=== PATIENT | male | born 1975 | race Caucasian/White ===

== ENCOUNTER 2020-08-17 20:00 | Observation (INO) ==
[2020-08-17 20:49] LABS: Basophils # (auto) 0.04 K/uL (0-0.2); Basophils % (auto) 0.5 %; Eosinophils # (auto) 0.58 K/uL (0-0.5); Eosinophils % (auto) 7.5 %; Hematocrit (blood only) 40.8 % (42-52); Hemoglobin 14.5 g/dL (14.0-18.0); Immature Granulocytes # (auto) 0.02 K/uL (0.00-0.02); Immature Granulocytes % (auto) 0.3 %; Lymphocytes % (auto) 36.2 %; Mean Corpuscular Hemoglobin 31.8 pg (25-34); Mean Corpuscular Hgb Conc 35.5 g/dL (32-36); Mean Corpuscular Volume 89.5 fL (80-100); Monocytes # (auto) 0.76 K/uL (0.11-0.59); Monocytes % (auto) 9.8 %; Neutrophils # (auto) 3.53 K/uL (1.4-6.5); Neutrophils % (auto) 45.7 %; Platelet Count 221 K/uL (130-400); RDW Coefficient of Variation 11.7 % (11.5-14.5); RDW Standard Deviation 38.2 fL (36.4-46.3); Red Blood Count 4.56 M/uL (4.7-6.1); White Blood Count 7.73 K/uL (4.8-10.8)
[2020-08-17 20:55] LABS: Alanine Aminotransferase 37 U/L (12-78); Albumin Level 3.8 gm/dl (3.4-5.0); Aspartate Aminotransferase 26 U/L (15-37); BUN Creatinine Ratio 18.3 (10-20); Blood Urea Nitrogen 17 mg/dl (7-18); Carbon Dioxide 27 mmol/L (21-32); Chloride 106 mmol/L (98-107); Creatinine Clr Calc Pharmacy 136.8 ml/min; Est GFR (African American) 111.5; Est GFR (Non-African American) 96.2; Glucose 122 mg/dl (70-99); Lipase 362 U/L (73-393); Potassium 3.8 mmol/L (3.5-5.1); Sodium 142 mmol/L (136-145)
[2020-08-17 20:59] LABS: Partial Thromboplastin Ratio 0.9; Partial Thromboplastin Time 24.2 Seconds (21.0-31.0); Prothrombin Time 10.4 Seconds (9.0-12.0)
[2020-08-17 21:00] LABS: Alkaline Phosphatase 65 U/L (45-117); Bilirubin,Total 0.6 mg/dl (0.2-1); Globulin 3.7 gm/dl (2.5-4.0); Total Protein 7.5 gm/dl (6.4-8.2); Troponin I < 0.015 ng/ml (0-0.045)
[2020-08-18] MEDS ORDERED: NITROGLYCERIN SL 0.4 MG/TAB TAB SL PRN (00:05)
[2020-08-18] MEDS ORDERED: ONDANSETRON INJ 2 MG/ML 2 ML VIAL IV PRN (00:05)
[2020-08-18] MEDS ORDERED: ACETAMINOPHEN 325 MG TAB PO PRN (00:05)
[2020-08-18] MEDS ORDERED: GLUCAGON FOR INJ 1 MG VIAL SQ PRN (00:15)
[2020-08-18] MEDS ORDERED: GLUCOSE 10 TABS/TUBE PO PRN (00:15)
[2020-08-18] MEDS ORDERED: CARBOHYDRATES FOR HYPOGLYCEMIA PO PRN (00:15)
[2020-08-18] MEDS ORDERED: DEXTROSE 50% 50 ML SYRINGE IV PRN (00:15)
[2020-08-18] MEDS ORDERED: GLUCOSE 40% GEL 15 GM TUBE PO PRN (00:15)
--- NOTE | 2020-08-18 01:32 | Emergency Department Note ---
History of Present Illness General Chief Complaint: Chest Pain Stated Complaint: CHEST PAIN,LEFT ARM PAIN Time Seen by Provider: 08/17/20 20:45 History of Present Illness Provider Complaint: chest pain Onset (ago): week(s) Onset (Weeks): 1 Duration: intermittent Pain Location: substernal Pain Radiation: LUE Severity: moderate Maximum Pain Intensity: 7 Current Pain Intensity: 0 Quality: + tightness, + aching and + sharp Relieved By: + nothing Exacerbated By: + nothing Associated symptoms: no dyspnea, no fever and no cough 45-year-old male presents emergency department from for chest pain. Patient reports he has been having intermittent chest pain for the last week. He reports the pain is stabbing. He states the pain at maximum is 7 out of 10. He states it radiated down his left arm. Patient reports no pain currently. He also reports feeling increasingly fatigued. Patient also reports a headache. Headache is diffuse. No recent trauma. No fever. No cough. No hemoptysis. No recent travel. No exogenous hormone usage. No exposure rhinoscope 19+ or person of interest. Patient reports no loss of taste or smell. Patient does state he is an alcoholic and he has not had anything to drink in the last 3 weeks as he is trying to quit drinking. Patient states he quit "cold turkey". 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 Home Medications Home Medications Medication Instructions Recorded Confirmed Type aspirin 81 mg PO QAM 10/24/19 08/17/20 History lisinopril 20 mg PO QAM 10/24/19 08/17/20 History metformin 500 mg PO QAM 10/24/19 08/17/20 History multivitamin 1 tab PO QAM 10/24/19 08/17/20 History apple cider vinegar 600 mg PO QAM 08/17/20 08/17/20 History famotidine 20 mg PO QAM 08/17/20 08/17/20 History Allergies Allergy/AdvReac Type Severity Reaction Status Date / Time No Known Allergies Allergy Verified 08/17/20 21:59 Past Med/Surg History Medical History (Updated 08/18/20 @ 01:32 by Montrell Lopez) Diabetes mellitus type 2, noninsulin dependent HTN (hypertension) Surgical History (Updated 08/18/20 @ 01:27 by Montrell Lopez) No pertinent past surgical history Family History (Updated 08/18/20 @ 01:27 by Montrell Lopez) Mother Heart disease Social History (Updated 10/24/19 @ 15:08 by Damaris Olivas) Smoking Status: Never smoker Tobacco Type: Smokeless Tobacco (Dip or Chew) Hx Alcohol Use: No Hx Substance Use: No Preferred Language: Chilean Communication Ability: Effective Flat Drier Required: No Beliefs That Will Affect Care: None Current Living Situation: Spouse Feels Safe at Home: Yes Safety Concerns: Feels Safe At This Time Review of Systems A total of 10 systems reviewed and were otherwise negative Physical Exam Vital Signs Vital Signs - 24 hr 08/17/20 20:04 08/17/20 22:00 08/17/20 22:30 Temperature 36.5 C Temperature Source Oral Pulse Rate 68 57 L 57 L Pulse Rate from SpO2 Sensor 58 L 56 L Respiratory Rate 18 14 17 Respiratory Effort / Characteristics Non-Labored Spontaneous Respiratory Depth Normal Blood Pressure 186/87 H 144/83 H 147/78 H Blood Pressure Mean 120 108 90 Blood Pressure Position Sitting Pulse Oximetry 97 99 97 Oxygen Delivery Method Room Air Sepsis Recent Fever Within 48 Hours No Sepsis New/Unexplained Change in Mental Status N/A Sepsis Action Taken by Nursing No Action Required Physical Exam GENERAL: He is oriented to person, place, and time. He appears well-developed and well-nourished. He does not appear distressed. HENT: Exam performed. - Head: Normocephalic and atraumatic. - Right Ear: External ear normal. No mastoid tenderness. - Left Ear: External ear normal. No mastoid tenderness. - Mouth/Throat: The oropharynx is clear and moist. No trismus in the jaw. No dental abscesses or uvula swelling. No oropharyngeal exudate or tonsillar abscesses. EYES: Conjunctivae and EOM are normal. Pupils are equal, round, and reactive to light. Right eye exhibits no discharge. Left eye exhibits no discharge. No scleral icterus. NECK: Normal range of motion. Neck supple. No JVD present. No spinous process tenderness present. No carotid bruit present. No rigidity. No tracheal deviation and normal range of motion present. No Brudzinski's sign and no Kernig's sign noted. CV: Normal rate, regular rhythm, normal heart sounds and intact distal pulses. There is no peripheral edema. Palpable radial pulses bue. PULM/CHEST: Effort normal and breath sounds normal. No respiratory distress. No stridor. He has no wheezes. He has no rales. - Chest Wall: He exhibits no tenderness. ABD: The abdomen is soft. Bowel sounds are normal. He has no distension. No mass is present. There is no tenderness. There is no rebound, no guarding, no Chun's sign and no tenderness at McBurney's point. Rovsig negative. MUSC/SKEL: Normal range of motion. There is no peripheral edema, tenderness or deformity. LYMPH: No cervical adenopathy. NEURO: He is alert and oriented to person, place, and time. He has normal strength. No cranial nerve deficit or sensory deficit. Coordination and gait normal. GCS eye subscore is 4. GCS verbal subscore is 5. GCS motor subscore is 6. Cerebellar tests wnl. SKIN: Skin is warm and dry. He is not diaphoretic. PSYCH: He has a normal mood and affect. Behavior is normal. Judgment and thought content normal. Course Course 2044: The patient was evaluated in room C12. A complete history and physical exam was performed. Patient was seen during time of extreme acuity and volume in the emergency department during the COVID-19 pandemic. Nursing protocols were placed for the patient and labs were drawn prior to me seeing him. Cardiac monitoring: An order was placed for continuous cardiac monitoring. The monitor shows a rate of 60 with sinus rhythm 2212: Vital signs stable. Physical exam within normal limits. Patient currently reports no chest pain or difficulty breathing. Labs and imaging within normal limits. Patient has a moderate to high heart score. Patient will be admitted for chest pain rule out ACS. [facility] hospitalist Dr. Oglesby notified. Medical Decision Making Laboratory Data Result diagrams: 08/17/20 20:15 08/17/20 20:15 Labs: Lab Results 08/17/20 08/17/20 08/17/20 Range/Units 20:15 20:15 20:15 WBC 7.73 (4.8-10.8) K/uL RBC 4.56 L (4.7-6.1) M/uL Hgb 14.5 (14.0-18.0) g/dL Hct 40.8 L (42-52) % MCV 89.5 (80-100) fL MCH 31.8 (25-34) pg MCHC 35.5 (32-36) g/dL RDW Std Deviation 38.2 (36.4-46.3) fL RDW Coeff of Miguel 11.7 (11.5-14.5) % Plt Count 221 (130-400) K/uL MPV 9.0 (7.4-10.4) fL Immature Gran % (Auto) 0.3 % Neut % (Auto) 45.7 % Lymph % (Auto) 36.2 % [place] % (Auto) 9.8 % Eos % (Auto) 7.5 % Baso % (Auto) 0.5 % Neut # (Auto) 3.53 (1.4-6.5) K/uL Lymph # (Auto) 2.80 (1.2-3.4) K/uL [place] # (Auto) 0.76 H (0.11-0.59) K/uL Eos # (Auto) 0.58 H (0-0.5) K/uL Baso # (Auto) 0.04 (0-0.2) K/uL Immature Gran # (Auto) 0.02 (0.00-0.02) K/uL PT 10.4 (9.0-12.0) Seconds INR 1.0 (0.9-1.1) APTT 24.2 (21.0-31.0) Seconds PTT Ratio 0.9 Sodium 142 (136-145) mmol/L Potassium 3.8 (3.5-5.1) mmol/L Chloride 106 (98-107) mmol/L Carbon Dioxide 27 (21-32) mmol/L Anion Gap 9.0 (3-11) BUN 17 (7-18) mg/dl Creatinine 0.94 (0.6-1.4) mg/dl Est Cr Clr Drug Dosing 136.8 ml/min Est GFR ( Amer) 111.5 Est GFR (Non-Af Amer) 96.2 BUN/Creatinine Ratio 18.3 (10-20) Glucose 122 H (70-99) mg/dl Calcium 9.0 (8.5-10.1) mg/dl Total Bilirubin 0.6 (0.2-1) mg/dl AST 26 (15-37) U/L ALT 37 (12-78) U/L Alkaline Phosphatase 65 (45-117) U/L Troponin I < 0.015 (0-0.045) ng/ml Total Protein 7.5 (6.4-8.2) gm/dl Albumin 3.8 (3.4-5.0) gm/dl Globulin 3.7 (2.5-4.0) gm/dl Albumin/Globulin Ratio 1.0 (0.9-2) Lipase 362 (73-393) U/L Imaging Data Chest x-ray: My impression: Chest x-ray negative. Airway clear. No pneumothorax. No consolidation. No cardiomegaly or cephalization.. No free air under the diaphragm. No fractures of the skeletal structures. CT scan - head: Radiologist's impression: PreliminaryFindingsOnly See Final Report For Complete Findings CT HEAD: No ICH, mass effect, or edema. Ethmoid air cell mucosal thickening. No skull fracture. Radiologist: Leisa Mckinley M.D. Study ready at 21:45 and initial results transmitted at 21:49 ECG Data Indication: chest pain Rate (beats per minute): 61 Rhythm: normal sinus Findings: no ST depression and no ST elevation Additional Comments: SC QRS and QTc intervals are within normal limits. MDM Narrative Vital signs stable. Physical exam within normal limits. Patient currently reports no chest pain or difficulty breathing. Labs and imaging within normal limits. Patient has a moderate to high heart score. Patient will be admitted for chest pain rule out ACS. [facility] hospitalist Dr. Oglesby notified. Impression & Plan Chest pain Discharge Plan Visit Data Chief Complaint: Chest Pain Stated Complaint: CHEST PAIN,LEFT ARM PAIN ED Provider: Montrell Lopez Discharge Problem: Chest pain Patient Disposition: Admitted As Inpatient Discharge Instructions Interventions: ED Discharge Assessment Last Done: 08/17/20 23:27 Discharge Problem: Chest pain Qualifiers: Chest pain type: unspecified Qualified Code(s): R07.9 - Chest pain, unspecified
--- NOTE | 2020-08-18 01:39 | History and Physical Report ---
DATE OF ADMISSION: 08/17/2020 CHIEF COMPLAINT: Chest pain. HISTORY OF PRESENT ILLNESS: This is a 45-year-old male with past medical history significant for hypertension, hyperlipidemia, diabetes, chews tobacco, who presents with chest pain. The patient says he is noticing left-sided chest pain since last 1 week, sometimes it is radiating to his left arm and is associated with headaches, a sharp kind of pain 6/10 in severity, mostly kind of nuisance kind of pain. 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 He is very active when he is at work, he does not notice any pain, but when he comes back home he notices the pain at home. It is a constant kind of pain. No shortness of breath, no cough, no dizziness, no nausea, no vomiting. No other complaints. No earache, no runny nose, no sore throat, no difficulty swallowing. No loss of sense of smell or taste. Appetite is okay. No abdominal pain. Normal bowel and bladder movements. No rash, no swelling in the legs. Sleeps okay. Otherwise active. The patient states he used to drink heavy alcohol like he used to drink 8 beers every day and 36 beers on the weekends, but he quit about 3 weeks ago. He did quit before also when he was diagnosed with diabetes and never had any withdrawal symptoms. At this time also, he never had withdrawal symptoms, but he developed this chest pain. He is not sure whether the quitting alcohol is causing the chest pain. Currently resting comfortable and hemodynamically stable. ALLERGIES: No known drug allergies. PAST MEDICAL HISTORY: As mentioned above. PAST SURGICAL HISTORY: Umbilical hernia repair. MEDICATIONS: Apple cider vinegar 600 mg p.o. a.m., aspirin 81 mg p.o. a.m., famotidine 20 mg p.o. a.m., lisinopril 20 mg p.o. a.m., metformin 500 mg p.o. a.m., multivitamin 1 tablet p.o. daily. FAMILY HISTORY: Significant for mother had asthma, father had MS, paternal grandfather had diabetes. SOCIAL HISTORY: . Chews tobacco. Currently no alcohol, no drug use. REVIEW OF SYSTEMS: As per HPI. Rest of review of systems negative. PHYSICAL EXAMINATION: GENERAL: The patient is of moderate build, not in acute distress. VITAL SIGNS: Temperature 36.5, pulse 57, respiratory rate 14, blood pressure 144/83, oxygen 99% on room air. HEENT: Pupils equal, round, reactive to light. NECK: No neck masses seen. CARDIOVASCULAR: S1, S2 heard. Regular rate and rhythm. No murmur, no gallop. RESPIRATORY SYSTEM: Normal AP diameter. No accessory muscle use. No wheezing, no crackles. ABDOMEN: Soft, bowel sounds present, nontender. No distention. CENTRAL NERVOUS SYSTEM: Cranial nerves II-XII grossly intact. Nonfocal. EXTREMITIES: No edema, no erythema. LABORATORY DATA: WBC 7.7, hemoglobin 14.4, hematocrit 40.8, platelets 221. PT 10.4, INR 1, APTT 24.2. Sodium 142, potassium 3.8, chloride 106, bicarbonate 27, BUN 17, creatinine 0.9, serum glucose 122, calcium 9, total bilirubin 0.6, AST 26, ALT 37, alkaline phosphatase 65. Troponin I less than 0.015. Lipase 362. IMAGING DATA: CT of the head, no acute findings seen. Chest x-ray, no acute findings seen. EKG: Normal sinus rhythm at a rate of 61. No acute ST changes seen. No significant change from previous EKG. ASSESSMENT AND PLAN: This is a 45-year-old male who presents with chest pain. 1. Chest pain, rule out acute coronary syndrome. Initial workup is negative. The patient has risk factor of hypertension, age, alcoholism, chews tobacco. The patient had a stress echo on 02/22/2020, which was negative for any inducible ischemia. We will observe in [facility] floor. N.p.o. after midnight. Will follow serial enzymes, echocardiogram. Further recommendation as per cardiology in a.m. Continue his aspirin. 2. Hypertension. Continue his lisinopril. Will monitor the blood pressure 3. Diabetes. Hold his metformin. Placed on insulin sliding scale. Follow hemoglobin A1c level, follow his blood sugars. 4. Chews tobacco. Needs counseling. 5. Alcoholism. Says he used to heavily drink, but quit 3 weeks ago. Continue his multivitamin. 6. Deep venous thrombosis prophylaxis, sequential compression devices. 7. Disposition: Observe in med/tel.Expect to discharge home and follow with his family doctor. Level 1 full code. MTDD
[2020-08-18 05:41] LABS: Basophils # (auto) 0.03 K/uL (0-0.2); Basophils % (auto) 0.4 %; Eosinophils # (auto) 0.68 K/uL (0-0.5); Eosinophils % (auto) 8.7 %; Hematocrit (blood only) 40.2 % (42-52); Hemoglobin 13.8 g/dL (14.0-18.0); Immature Granulocytes # (auto) 0.01 K/uL (0.00-0.02); Immature Granulocytes % (auto) 0.1 %; Lymphocytes # (auto) 2.46 K/uL (1.2-3.4); Lymphocytes % (auto) 31.5 %; Mean Corpuscular Hemoglobin 30.5 pg (25-34); Mean Corpuscular Hgb Conc 34.3 g/dL (32-36); Mean Corpuscular Volume 88.9 fL (80-100); Monocytes # (auto) 0.91 K/uL (0.11-0.59); Monocytes % (auto) 11.6 %; Neutrophils # (auto) 3.73 K/uL (1.4-6.5); Neutrophils % (auto) 47.7 %; Platelet Count 178 K/uL (130-400); RDW Coefficient of Variation 11.7 % (11.5-14.5); RDW Standard Deviation 37.7 fL (36.4-46.3); Red Blood Count 4.52 M/uL (4.7-6.1); White Blood Count 7.82 K/uL (4.8-10.8)
[2020-08-18 06:19] LABS: BUN Creatinine Ratio 17.4 (10-20); Blood Urea Nitrogen 16 mg/dl (7-18); Calcium 8.8 mg/dl (8.5-10.1); Carbon Dioxide 27 mmol/L (21-32); Chloride 108 mmol/L (98-107); Creatinine Clr Calc Pharmacy 142.6 ml/min; Est GFR (African American) 117.5; Est GFR (Non-African American) 101.4; Glucose 110 mg/dl (70-99); Magnesium 2.1 mg/dl (1.8-2.4); Potassium 4.1 mmol/L (3.5-5.1); Sodium 141 mmol/L (136-145)
[2020-08-18 06:24] LABS: Estimated Average Glucose 114 mg/dl; Hemoglobin A1C 5.6 % (4.5-5.6)
[2020-08-18 06:25] LABS: Chol HDL Ratio 5; Cholesterol 175 mg/dl (0-200); HDL Cholesterol 33 mg/dl; LDL Cholesterol Calculated 107 mg/dl; Triglycerides 175 mg/dl (0-150); Troponin I < 0.015 ng/ml (0-0.045); VLDL Cholesterol 35 mg/dl
--- NOTE | 2020-08-18 06:52 | XRay Report ---
XR chest 1V portable CLINICAL HISTORY: Atypical chest pain COMPARISON STUDY: 10/24/2019 FINDINGS: The heart is upper limits of normal in size. There is no failure. There is no focal pulmona ry consolidation. There are no pleural effusions.[ IMPRESSION: No active disease in the chest. ACT 112: Negative or not required by law. Electronically signed by: Kirt Robertson M.D. 08/18/2020 6:50 AM
--- NOTE | 2020-08-18 06:56 | CT Scan Report ---
CT head/brain wo con CLINICAL HISTORY: 45 years-old Male with cameron alcoholism. Acute headache with chest pain TECHNIQUE: Multiple axial CT images of the head were obtained without contrast. A dose lowering tech nique was utilized adhering to the principles of ALARA. CT DOSE: 614.27 mGy.cm COMPARISON: None. FINDINGS: No acute intracranial hemorrhage, midline shift, intracranial mass, hydrocephalus, territorial ischem ia or abnormal extra-axial collection. The calvarium is intact. Mastoid air cells are clear. Moderate mucosal thickening of the ethmoid air cells. Soft tissues and orbits are unremarkable. IMPRESSION: No acute intracranial abnormality. ACT 112: Negative or not required by law. The above report was generated using voice recognition software. It may contain grammatical, syntax o r spelling errors. Electronically signed by: Rajendra Schultz M.D. 08/18/2020 6:54 AM
[2020-08-18] MEDS ORDERED: INSULIN ASPART 100 UNITS/ML 3 ML PEN SC SCH (07:30)
[2020-08-18] MEDS ORDERED: ASPIRIN 81 MG ECTAB PO SCH (09:00)
[2020-08-18] MEDS ORDERED: MULTIVITAMIN TAB PO SCH (09:00)
[2020-08-18] MEDS ORDERED: lisinopriL 20 MG TAB PO SCH (09:00)
[2020-08-18] MEDS ORDERED: FAMOTIDINE 20 MG TAB PO SCH (09:00)
--- NOTE | 2020-08-18 09:27 | Electrocardiogram Report ---
Test Reason : Blood Pressure : / mmHG Vent. Rate : 061 BPM Atrial Rate : 061 BPM P-R Int : 172 ms QRS Dur : 102 ms QT Int : 400 ms P-R-T Axes : 041 051 051 degrees QTc Int : 402 ms Normal sinus rhythm Normal ECG When compared with ECG of 24-OCT-2019 14:53, No significant change was found Confirmed by Gigi Mckay ([id number]) on 08/18/2020 9:27:28 AM Referred By: REFERRED SELF Confirmed By:Gigi Mckay
--- NOTE | 2020-08-18 09:38 | Electrocardiogram Report ---
Test Reason : Blood Pressure : / mmHG Vent. Rate : 056 BPM Atrial Rate : 056 BPM P-R Int : 172 ms QRS Dur : 094 ms QT Int : 418 ms P-R-T Axes : 039 057 050 degrees QTc Int : 403 ms Sinus bradycardia Otherwise normal ECG When compared with ECG of 17-AUG-2020 20:11, (unconfirmed) No significant change was found Confirmed by Gigi Mckay ([id number]) on 08/18/2020 9:38:00 AM Referred By: REFERRED SELF Confirmed By:Gigi Mckay
--- NOTE | 2020-08-18 11:06 | Medical Student Progress Note ---
Date of Service August 18, 2020 Assessment & Plan (1) HTN (hypertension): Pt is 45M with pmhx of HTN and T2DM presenting with sharp chest pain radiating to L arm suspecting to be related to L shoulder displacement given associated PRICE and negative cardiac workup. 1. Chest pain with L arm radiation - EKG 08/17: sinus bradycardia otherwise normal - Echo 08/18: normal LV size and wall thickness, EF 55-60% - given work history and L shoulder injury, suspect chest pain and L arm pain is MSK-related - refer to orthopedic for evaluation of L shoulder 2. Headache - located at R trapezius muscle, suspect it is related to L shoulder dislocation/MSK - recommend taking Tylenol or ASA 325mg PRN and advise not to take ibuprofen/naproxen due to potential kidney damage 3. HTN - BP 129/69 - increase lisinopril to 20mg to 40mg as systolic BP during stress test >200 4. T2DM - HbA1c 5.6 - continue taking metformin 500mg - add Lipitor for ASCVD prevention (2) Diabetes mellitus type 2, noninsulin dependent: (3) Chest pain: (4) Headache: Admission and Anticipated Discharge Date Admission Date: August 17, 2020 Subjective Pt reports doing fine and is sitting comfortably prior to stress test. 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 He had 2 similar episodes in the past (one 6yrs ago and another last January) and had worked up with EKG/stress test which were normal. No L-sided chest pain or radiation at the moment. He reports L shoulder "popping" out a couple of months ago and had only seen a chiropractor. He has a R-sided headache located at R trapezius muscle that is aching and occurs at time of chest pain and he has been more tired than usual. He feels tired waking up in the morning and wanting to take a nap in the afternoon. He reports snoring. On ASA 81mg with no bruising or bleeding. He coughs up phlegm every morning which he takes famotidine. No midline burning sensation and he sleeps on 2 pillows. No palpitations, dizziness, lightheadedness, SOB, changes to vision, numbness or tingling in UE/LE (hx of R carpal tunnel syndrome) and no changes to bowel. Review of Systems Constitutional: + fatigue; no fever, no sweats and no body aches Eyes: no loss of peripheral vision and no spots in vision Respiratory: + snoring; no cough and no hemoptysis Cardiovascular: + chest pain (L-sided, occurs during evenings after work) and + radiating jaw, neck or arm pain (L medial shoulder to elbow, sharp and 1x episode of burning sensation); no dyspnea at rest, no palpitations, no lightheadedness, no syncope, no edema and no calf pain Gastrointestinal: no abdominal pain Musculoskeletal: no back pain, no neck pain and no limited range of motion Neurologic: + headache(s) (R trapezius muscle, aching and corresponds with chest pain) Physical Exam Constitutional: comfortable; no acute distress Respiratory: normal respiratory effort, lungs clear to auscultation Cardiovascular: RRR, no murmur, no edema Vessels: no carotid bruit Gastrointestinal (Abdomen): normal bowel sounds, soft, nontender, no hepatosplenomegaly Musculoskeletal: Head/Neck/Chest: full ROM of neck, no scalp tenderness and no chest tenderness L lateral clavicle displaced with hx of injury Results & Data ([facility]) Vital Signs (Past 12 Hours) Vital Signs Temp Pulse Pulse Resp BP BP BP 08/18/20 07:55 49 L 08/18/20 07:16 36.5 C 61 18 129/69 08/18/20 04:00 36.5 C 54 L 16 143/72 H 08/18/20 00:05 36.5 C 20 179/93 H 08/17/20 23:00 60 17 153/83 H Pulse Ox 08/18/20 07:55 08/18/20 07:16 97 08/18/20 04:00 96 08/18/20 00:05 96 08/17/20 23:00 97
--- NOTE | 2020-08-18 12:03 | Cardiology Consultation ---
Date of Consultation August 18, 2020 Assessment & Plan (1) Chest pain: (2) Diabetes mellitus type 2, noninsulin dependent: (3) HTN (hypertension): (4) Dislocation of left shoulder joint: It was my pleasure to see the patient in consultation today. Cardiac workup was unremarkable. On exercise stress testing he did not achieve target heart rate and study was stopped prematurely due to hypertensive response to exercise. However, he completed almost 12 minutes of Fabian protocol without inducible ischemic changes on echo, EKG or reproduction of his chest discomfort. No further cardiac testing is necessary at this time. Okay to discharge to home at this time. His left shoulders chronically dislocated and I believe that this is the cause of all of his discomfort. Recommend outpatient referral to Dr. Diop for further evaluation, I will place the referral myself into epic In terms of his cardiac risk factors, he is diabetic so he needs to be on statin therapy. Start atorvastatin 10 mg daily and follow-up with PCP as outpatient. Also, given his hypertensive blood pressure response to exercise I would increase his lisinopril to 40 mg daily upon discharge and he should have a blood pressure check and BMP drawn in 1 week. Aspirin should be continued. No cardiac follow-up. History of Present Illness Reason for Consultation: Chest Pain Requesting Physician: Dr. Oglesby Attending Physician: Monik Goodman MD History of Present Illness It was my pleasure to see Mr. Dominique in cardiac consultation today August 18, 2020. He is a very pleasant 45-year-old gentleman who present to [facility] Emergency Department with complaints of shoulder, neck, chest and left arm pain. He states this is been going off and on for several months now. He describes it as a pressure sensation across his left precordium along with an achy sensation in his left shoulder left neck and down his left arm. He is very active and states that this never occurs with activity. It seems to occur when he comes home after a full day work. He denies any associated symptoms with it. Yesterday the discomfort once again occurred but did not resolve so he came in to the emergency department. His cardiac workup was unremarkable and he was admitted to telemetry. Upon further questioning, the patient states that his left shoulder was dislocated several years ago. The only medical attention he sought at that time was a chiropractor. He states that over the following 5 years his arm seems to of strength and but the shoulder remains on replace. Allergies Allergy/AdvReac Type Severity Reaction Status Date / Time No Known Allergies Allergy Verified 08/17/20 21:59 Home Medications Home Medications Medication Instructions Recorded Confirmed Type aspirin 81 mg PO QAM 10/24/19 08/17/20 History lisinopril 20 mg PO QAM 10/24/19 08/17/20 History metformin 500 mg PO QAM 10/24/19 08/17/20 History multivitamin 1 tab PO QAM 10/24/19 08/17/20 History apple cider vinegar 600 mg PO QAM 08/17/20 08/17/20 History famotidine 20 mg PO QAM 08/17/20 08/17/20 History Patient History Medical History Diabetes mellitus type 2, noninsulin dependent HTN (hypertension) Surgical History No pertinent past surgical history Family History Mother Heart disease Social History Smoking Status: Never smoker Tobacco Type: Smokeless Tobacco (Dip or Chew) Hx Alcohol Use: No Hx Substance Use: No Preferred Language: Panamanian Communication Ability: Effective International Editorial Producer Required: No Beliefs That Will Affect Care: None marital status: Current Living Situation: Spouse Feels Safe at Home: Yes Safety Concerns: Feels Safe At This Time Assistive Devices: None Review of Systems Review of Systems: All systems reviewed & are unremarkable except as noted in HPI & below Physical Exam Physical Exam: Physical Exam: General: Awake, alert and oriented x 3. No acute distress. HEENT: Normocephalic, atraumatic. Pupils equal, round and reactive to light and accommodation. Extraocular muscles are intact. Anicteric sclera. Moist mucous membranes. Neck: No JVD. No bruit. Cardiovascular: Regular. No S-4. Normal S-1 and S-2. No S-3. No murmurs, rubs or gallops. Pulmonary: Clear to auscultation bilaterally. No rales, rhonchi, or wheezing. Abdomen: Bowel sounds x 4, soft. No rebound, guarding or tenderness. No organomegaly. Extremities: No clubbing, cyanosis or edema. +2 pedal pulses bilaterally. Skin: Warm and dry. Results & Data ([facility]) Vital Signs (Past 12 Hours) Vital Signs Temp Pulse Pulse Resp BP BP Pulse Ox 08/18/20 11:21 36.8 C 65 18 149/80 H 96 08/18/20 07:55 49 L 08/18/20 07:16 36.5 C 61 18 129/69 97 08/18/20 04:00 36.5 C 54 L 16 143/72 H 96 08/18/20 00:05 36.5 C 20 179/93 H 96 Laboratory Results Laboratory Results - last 24 hr 08/17/20 08/17/20 08/17/20 20:15 20:15 20:15 WBC 7.73 RBC 4.56 L Hgb 14.5 Hct 40.8 L MCV 89.5 MCH 31.8 MCHC 35.5 RDW Std Deviation 38.2 RDW Coeff of Miguel 11.7 Plt Count 221 MPV 9.0 Immature Gran % (Auto) 0.3 Neut % (Auto) 45.7 Lymph % (Auto) 36.2 Rains % (Auto) 9.8 Eos % (Auto) 7.5 Baso % (Auto) 0.5 Neut # (Auto) 3.53 Lymph # (Auto) 2.80 Rains # (Auto) 0.76 H Eos # (Auto) 0.58 H Baso # (Auto) 0.04 Immature Gran # (Auto) 0.02 PT 10.4 INR 1.0 APTT 24.2 PTT Ratio 0.9 Sodium 142 Potassium 3.8 Chloride 106 Carbon Dioxide 27 Anion Gap 9.0 BUN 17 Creatinine 0.94 Est Cr Clr Drug Dosing 136.8 Est GFR ( Amer) 111.5 Est GFR (Non-Af Amer) 96.2 BUN/Creatinine Ratio 18.3 Glucose 122 H POC Glucose Estimat Average Glucose Hemoglobin A1c Calcium 9.0 Magnesium Total Bilirubin 0.6 AST 26 ALT 37 Alkaline Phosphatase 65 Troponin I < 0.015 Total Protein 7.5 Albumin 3.8 Globulin 3.7 Albumin/Globulin Ratio 1.0 Triglycerides Cholesterol LDL Cholesterol, Calc VLDL Cholesterol, Calc HDL Cholesterol Cholesterol/HDL Ratio Lipase 362 08/18/20 08/18/20 08/18/20 05:19 05:19 05:19 WBC 7.82 RBC 4.52 L Hgb 13.8 L Hct 40.2 L MCV 88.9 MCH 30.5 MCHC 34.3 RDW Std Deviation 37.7 RDW Coeff of Miguel 11.7 Plt Count 178 MPV 9.0 Immature Gran % (Auto) 0.1 Neut % (Auto) 47.7 Lymph % (Auto) 31.5 Rains % (Auto) 11.6 Eos % (Auto) 8.7 Baso % (Auto) 0.4 Neut # (Auto) 3.73 Lymph # (Auto) 2.46 Rains # (Auto) 0.91 H Eos # (Auto) 0.68 H Baso # (Auto) 0.03 Immature Gran # (Auto) 0.01 PT INR APTT PTT Ratio Sodium 141 Potassium 4.1 Chloride 108 H Carbon Dioxide 27 Anion Gap 6.0 BUN 16 Creatinine 0.90 Est Cr Clr Drug Dosing 142.6 Est GFR ( Amer) 117.5 Est GFR (Non-Af Amer) 101.4 BUN/Creatinine Ratio 17.4 Glucose 110 H POC Glucose Estimat Average Glucose 114 Hemoglobin A1c 5.6 Calcium 8.8 Magnesium 2.1 Total Bilirubin AST ALT Alkaline Phosphatase Troponin I < 0.015 Total Protein Albumin Globulin Albumin/Globulin Ratio Triglycerides 175 H Cholesterol 175 LDL Cholesterol, Calc 107 VLDL Cholesterol, Calc 35 HDL Cholesterol 33 Cholesterol/HDL Ratio 5 Lipase 08/18/20 08/18/20 08/18/20 07:43 11:10 11:30 WBC RBC Hgb Hct MCV MCH MCHC RDW Std Deviation RDW Coeff of Miguel Plt Count MPV Immature Gran % (Auto) Neut % (Auto) Lymph % (Auto) Rains % (Auto) Eos % (Auto) Baso % (Auto) Neut # (Auto) Lymph # (Auto) Rains # (Auto) Eos # (Auto) Baso # (Auto) Immature Gran # (Auto) PT INR APTT PTT Ratio Sodium Potassium Chloride Carbon Dioxide Anion Gap BUN Creatinine Est Cr Clr Drug Dosing Est GFR ( Amer) Est GFR (Non-Af Amer) BUN/Creatinine Ratio Glucose POC Glucose 112 H 103 H Estimat Average Glucose Hemoglobin A1c Calcium Magnesium Total Bilirubin AST ALT Alkaline Phosphatase Troponin I < 0.015 Total Protein Albumin Globulin Albumin/Globulin Ratio Triglycerides Cholesterol LDL Cholesterol, Calc VLDL Cholesterol, Calc HDL Cholesterol Cholesterol/HDL Ratio Lipase
--- NOTE | 2020-08-18 13:24 | Hospitalist Progress Note ---
Date of Service August 18, 2020 Assessment & Plan (1) Chest pain: Admitted with exertional chest pain Serial cardiac enzymes and EKGs were unremarkable for any ACS Status post stress echo which showed no ischemia but hypertensive response Appreciate cardiology input and recommendation Atorvastatin 10 mg was added (2) Dislocation of left shoulder joint: Chest pain is aggravated by dislocation of the left shoulder Advised to have an outpatient appointment with orthopedic surgeon (3) Diabetes mellitus type 2, noninsulin dependent: (4) HTN (hypertension): Lisinopril was increased to 40 mg to control blood pressure Admission and Anticipated Discharge Date Admission Date: August 17, 2020 Anticipated date of discharge: 08/18/20 Subjective 08/18/2020 The patient was seen and examined in medical telemetry unit Is admitted last night with the chest pain He was ruled out and has had negative stress echo this morning Denies any symptoms during my examination Review of Systems Review of Systems: All systems reviewed and are unremarkable except as noted below Cardiovascular: no chest pain and no palpitations Physical Exam Physical Exam: No acute distress Constitutional: well developed, well nourished and + obese; no acute distress Eyes: PERRL, conjunctivae normal, anicteric sclerae ENMT: external ear and nose normal, oropharynx normal Neck: trachea midline, no thyromegaly Respiratory: normal respiratory effort; no respiratory distress Auscultation: lungs clear to auscultation bilaterally Cardiovascular: Rate/Rhythm: regular rate and regular rhythm Heart Sounds: no murmur Gastrointestinal (Abdomen): Inspection/Auscultation: abdomen normal to inspection and normal bowel sounds; abdomen not distended Percussion/Palpation: abdomen soft Musculoskeletal: No acute arthritis involving any joint Neurologic: moves all extremities; no focal motor deficits Psychiatric: A+Ox3, euthymic affect Lymphatic: no cervical or axillary lymphadenopathy Results & Data Results & Data ([facility]) Vital Signs (Past 12 Hours) Vital Signs Temp Pulse Pulse Resp BP BP Pulse Ox 08/18/20 11:21 36.8 C 65 18 149/80 H 96 08/18/20 07:55 49 L 08/18/20 07:16 36.5 C 61 18 129/69 97 08/18/20 04:00 36.5 C 54 L 16 143/72 H 96 Laboratory Results Short CBC 08/17/20 08/18/20 Range/Units 20:15 05:19 WBC 7.73 7.82 (4.8-10.8) K/uL Hgb 14.5 13.8 L (14.0-18.0) g/dL Hct 40.8 L 40.2 L (42-52) % Plt Count 221 178 (130-400) K/uL BMP 08/17/20 08/18/20 20:15 05:19 Sodium 142 141 Potassium 3.8 4.1 Chloride 106 108 H Carbon Dioxide 27 27 BUN 17 16 Creatinine 0.94 0.90 Glucose 122 H 110 H Calcium 9.0 8.8 Cardiac Enzymes 08/17/20 08/18/20 08/18/20 Range/Units 20:15 05:19 11:10 Troponin I < 0.015 < 0.015 < 0.015 (0-0.045) ng/ml Liver Function 08/17/20 Range/Units 20:15 Total Bilirubin 0.6 (0.2-1) mg/dl AST 26 (15-37) U/L ALT 37 (12-78) U/L Alkaline Phosphatase 65 (45-117) U/L Albumin 3.8 (3.4-5.0) gm/dl Medications Administered Current Inpatient Medications Acetaminophen (Acetaminophen 325 Mg Tab) 650 mg PO Q4H PRN PRN Reason: Pain or Fever Stop: 09/17/20 00:04 Last Admin: 08/18/20 08:07 Dose: 650 mg Documented by: Aspirin (Aspirin 81 Mg Ectab) 81 mg PO [facility] Stop: 09/17/20 08:59 Last Admin: 08/18/20 08:07 Dose: 81 mg Documented by: Dextrose (Dextrose 50% 50 Ml Syringe) 25 - 50 ml IV UD PRN; Protocol PRN Reason: Hypoglycemia Protocol Stop: 09/17/20 00:14 Famotidine (Famotidine 20 Mg Tab) 20 mg PO [facility] Stop: 09/17/20 08:59 Last Admin: 08/18/20 08:07 Dose: 20 mg Documented by: Glucagon (Glucagon For Inj 1 Mg Vial) 1 mg SQ UD PRN; Protocol PRN Reason: Hypoglycemia Protocol Stop: 09/17/20 00:14 Glucose (Glucose 40% Gel 15 Gm Tube) 15 - 30 gm PO UD PRN; Protocol PRN Reason: Hypoglycemia Protocol Stop: 09/17/20 00:14 Glucose (Glucose 10 Tabs/Tube) 4 - 8 tabs PO UD PRN; Protocol PRN Reason: Hypoglycemia Protocol Stop: 09/17/20 00:14 Insulin Aspart (Insulin Aspart 100 Units/Ml 3 Ml Pen) 0 units SC ACHS [facility] Stop: 09/17/20 07:29 Last Admin: 08/18/20 07:53 Dose: Not Given Documented by: Lisinopril (Lisinopril 20 Mg Tab) [facility] Stop: 09/17/20 08:59 Last Admin: 08/18/20 08:07 Dose: 20 mg Documented by: Miscellaneous (Carbohydrates For Hypoglycemia ) 15 - 30 gm PO UD PRN PRN Reason: Hypoglycemia Treatment Stop: 09/17/20 00:14 Multivitamins (Multivitamin Tab) 1 tab PO [facility] Stop: 09/17/20 08:59 Last Admin: 08/18/20 08:07 Dose: 1 tab Documented by: Nitroglycerin (Nitroglycerin Sl 0.4 Mg/Tab Tab) 0.4 mg SL UD PRN PRN Reason: Chest Pain Stop: 09/17/20 00:04 Ondansetron HCl (Ondansetron Inj 2 Mg/Ml 2 Ml Vial) 4 mg IV Q6H PRN PRN Reason: Nausea Stop: 09/17/20 00:04
--- NOTE | 2020-08-19 07:44 | Discharge Summary ---
Date of Service August 19, 2020 Admission HPI Per Admitting Provider DICTATED BY: Alex Oglesby MD DATE OF ADMISSION: 08/17/2020 CHIEF COMPLAINT: Chest pain. HISTORY OF PRESENT ILLNESS: This is a 45-year-old male with past medical history significant for hypertension, hyperlipidemia, diabetes, chews tobacco, who presents with chest pain. The patient says he is noticing left-sided chest pain since last 1 week, sometimes it is radiating to his left arm and is associated with headaches, a sharp kind of pain 6/10 in severity, mostly kind of nuisance kind of pain. 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 He is very active when he is at work, he does not notice any pain, but when he comes back home he notices the pain at home. It is a constant kind of pain. No shortness of breath, no cough, no dizziness, no nausea, no vomiting. No other complaints. No earache, no runny nose, no sore throat, no difficulty swallowing. No loss of sense of smell or taste. Appetite is okay. No abdominal pain. Normal bowel and bladder movements. No rash, no swelling in the legs. Sleeps okay. Otherwise active. The patient states he used to drink heavy alcohol like he used to drink 8 beers every day and 36 beers on the weekends, but he quit about 3 weeks ago. He did quit before also when he was diagnosed with diabetes and never had any withdrawal symptoms. At this time also, he never had withdrawal symptoms, but he developed this chest pain. He is not sure whether the quitting alcohol is causing the chest pain. Currently resting comfortable and hemodynamically stable. Admission Exam Per Admitting Provider GENERAL: The patient is of moderate build, not in acute distress. VITAL SIGNS: Temperature 36.5, pulse 57, respiratory rate 14, blood pressure 144/83, oxygen 99% on room air. HEENT: Pupils equal, round, reactive to light. NECK: No neck masses seen. CARDIOVASCULAR: S1, S2 heard. Regular rate and rhythm. No murmur, no gallop. RESPIRATORY SYSTEM: Normal AP diameter. No accessory muscle use. No wheezing, no crackles. ABDOMEN: Soft, bowel sounds present, nontender. No distention. CENTRAL NERVOUS SYSTEM: Cranial nerves II-XII grossly intact. Nonfocal. EXTREMITIES: No edema, no erythema. Principal Diagnosis Chest pain, negative dobutamine stress echo, chronic dislocation of left shoulder Discharge Exam Constitutional well developed, well nourished and + obese; no acute distress Eyes PERRL, conjunctivae normal, anicteric sclerae ENMT external ear and nose normal, oropharynx normal Neck trachea midline, no thyromegaly Respiratory normal respiratory effort; no respiratory distress Auscultation: lungs clear to auscultation bilaterally Cardiovascular Rate/Rhythm: regular rate and regular rhythm Heart Sounds: no murmur Gastrointestinal (Abdomen) Inspection/Auscultation: abdomen normal to inspection and normal bowel sounds; abdomen not distended Percussion/Palpation: abdomen soft Neurologic moves all extremities; no focal motor deficits Psychiatric A+Ox3, euthymic affect Lymphatic no cervical or axillary lymphadenopathy Discharge Data Allergies Allergy/AdvReac Type Severity Reaction Status Date / Time No Known Allergies Allergy Verified 08/17/20 21:59 Consultations 08/17/20 22:12 ED Decision to Admit Stat 08/18/20 00:05 Consult Case Management - Discharge Planning Routine 08/18/20 08:00 Consult Cardiology Routine Ordered Studies 08/17/20 21:14 CT head/brain wo con Urgent Hospital Course (1) Chest pain: Admitted with exertional chest pain Serial cardiac enzymes and EKGs were unremarkable for any ACS Status post stress echo which showed no ischemia but hypertensive response Appreciate cardiology input and recommendation Atorvastatin 10 mg was added (2) Dislocation of left shoulder joint: Chest pain is aggravated by dislocation of the left shoulder Advised to have an outpatient appointment with orthopedic surgeon (3) Diabetes mellitus type 2, noninsulin dependent: (4) HTN (hypertension): Lisinopril was increased to 40 mg to control blood pressure Total Time Total Time Spent Total Time Spent (In Minutes): 35 minutes Total Time Includes: Examination of the Patient, Discharge Planning, Medication Reconciliation and Communication With Other Providers Discharge Plan Discharge Items Patient Disposition: Home - Self-Care Reason For Visit: CHEST PAIN Discharge Diagnosis: Chest pain, negative dobutamine stress echo, chronic dislocation of left shoulder Condition on Discharge: Good Activity: Resume your previous activity Non-emergency contact: Primary Care Provider Call non-emergency contact if: you have any medication questions and your symptoms worsen Follow-up/Referrals: Tawana Jolley DO [Primary Care Provider] - 08/21/20 2:20 pm ([facility] cardiology will call for an appointment. Please have your blood pressure checked and basic metabolic panel checked when you see your primary physician) Diet: Heart Healthy and Low Sodium (2gm) Addtl Attending Provider Instructions: New medications including atorvastatin 10 mg daily and lisinopril was increased to 40 mg daily. Please have a follow-up appointment with orthopedic surgeon for the left shoulder problem Pending Studies at Discharge: No Stand-Alone Forms: [facility], Sm[facility] Cessation Medications and DC Order Prescriptions: New atorvastatin 10 mg tablet 10 mg PO DAILY Qty: 30 RF: 0 lisinopril 40 mg tablet 40 mg PO DAILY Qty: 30 RF: 0 Continued multivitamin Tablet 1 tab PO QAM RF: 0 aspirin 81 mg Tablet,Delayed Release (Dr/Ec) 81 mg PO QAM RF: 0 metformin 1,000 mg tablet 500 mg PO QAM RF: 0 famotidine 20 mg Tablet 20 mg PO QAM RF: 0 apple cider vinegar 600 mg Capsule 600 mg PO QAM RF: 0 Discontinued lisinopril 20 mg tablet 20 mg PO QAM RF: 0 Discharge Orders: Discharge Order (Routine); Ordered 08/18/20 Ordered By: Monik Goodman Admission Data Admit Date/Time: 08/17/20 22:54 Attending Provider: Monik Goodman Admit Provider: Alex Oglesby Primary Care Provider: Tawana Jolley Other Providers: Alex Oglesby ; Abhinav Aleman ; Rsos Porter ; Spencer Norris ; Howard Diaz ; TadBentley freedman ; Suhail French ; Barbi Stout ; Darlene Galarza ; Carl Webber Other Interventions: Discharge Summary Assessment (RN) Last Done: 08/18/20 13:42
== END 2020-08-18 14:39 | disposition home or self-care (01) ==
LOC: 2N 20:00 → ED 20:00 → 2N 23:27